=== PATIENT | female | born 1930 | race Caucasian/White ===

== ENCOUNTER → 2017-05-29 | Outpatient (CLI) | payer MEDICARE, OTHER ==
[~2017-05-29] MED LIST: ASPIRIN81 M2 PO; B COMPLEX1 EACH PO; B12INJ; BACTRIM DS TAB1 EACH PO; BUDESONIDE EC3 MG PO; CARVEDILOL12.5 MG PO; CELEBREX 200 M200 M1 PO; CELEBREX 200 M200 MG PO; CELEBREX50 MG PO; CENTRUM SILVER1 EAC4 PO; CHLORTHALIDONE25 MG PO; CHOLESTYRAMINE P4 GM PO; CIPRO500 MG PO; CIPROFLOXACIN500 M1 PO; COLESTID1 GM PO; COZAAR 50 MG TA50 M1 PO; COZAAR 50 MG TA50 M2 PO; DIFLUCAN150 MG PO; FISHOIL; FOLIC ACID PO; FOLIC ACID1 MG PO; FOSAMAX 70 MG T70 MG PO; FUROSEMIDE 20 M20 M1 PO; HYDRALAZINE 2525 MG PO; HYDROCODON-ACE1 EAC7 PO; HYZAAR 100-251 EACH PO; HYZAAR 50-12.51 EACH PO; LASIX 20 MG TAB20 MG PO; LIDOPATCH1 EACH TOP; LOPERAMIDE 2 MG2 M1 PO; LOSARTAN-HCTZ1 EAC1 PO; MOBIC15 MG PO; NAPROSYN500 MG PO; NEXIUM40 MG PO; NORCO 5-325 TA1 EACH PO; NORVASC10 MG PO; NYSTATIN15 GM TP; OXYBUTYNIN 5 MG5 M1 PO; OXYBUTYNIN 5 MG5 M2 PO; PAXIL10 MG PO; PERCOCET PO; POTASSIUM99 M1; PREDNISONE 20 M20 MG PO; PRILOSEC 20 MG20 MG PO; PRILOSEC10 MG PO; PROBIOTIC1 EAC1 PO; PROBIOTIC1 EAC2 PO; SPIRONOLACTONE25 MG PO; TRAMADOL 50 MG50 MG PO; TUMS PO; TYLENOL EXTRA500 MG PO; VITAMIN D1000 UNI1 PO; ZYRTEC10 M5 PO; ZYRTEC10 MG PO
== END ==
LOC: M.RAD 11:59
DX: M47.896 Other spondylosis, lumbar region (principal); M41.86 Other forms of scoliosis, lumbar region; I16.0 Hypertensive urgency; W19.XXXA Unspecified fall, initial encounter

== ENCOUNTER 2017-06-01 11:12 | Inpatient (IN) | payer MEDICARE, OTHER ==
[~2017-06-01] VITALS: Ht 162.6 cm; Wt 66.7 kg
[~2017-06-01 11:12] MED LIST changes: -BUDESONIDE EC3 MG PO; -CARVEDILOL12.5 MG PO; -CELEBREX50 MG PO; -CENTRUM SILVER1 EAC4 PO; -CHLORTHALIDONE25 MG PO; -COLESTID1 GM PO; -COZAAR 50 MG TA50 M1 PO; -COZAAR 50 MG TA50 M2 PO; -FUROSEMIDE 20 M20 M1 PO; -HYDRALAZINE 2525 MG PO; -LASIX 20 MG TAB20 MG PO; -LIDOPATCH1 EACH TOP; -LOPERAMIDE 2 MG2 M1 PO; -NORVASC10 MG PO; -OXYBUTYNIN 5 MG5 M2 PO; -PAXIL10 MG PO; -PREDNISONE 20 M20 MG PO; -PRILOSEC 20 MG20 MG PO; -PRILOSEC10 MG PO; -PROBIOTIC1 EAC1 PO; -PROBIOTIC1 EAC2 PO; -SPIRONOLACTONE25 MG PO; -TRAMADOL 50 MG50 MG PO; -TUMS PO; -TYLENOL EXTRA500 MG PO
[2017-06-01 11:25] VITALS: BP 231/102
[2017-06-01 11:49] LABS: ABSOLUTE BASOPHILS 0.1 thou/uL (0.0-0.2); ABSOLUTE EOSINOPHILS 0.3 thou/uL (0.0-0.7); ABSOLUTE LYMPHOCYTES 2.2 thou/uL (0.8-5.3); ABSOLUTE MONOCYTES 1.1 thou/uL (0.0-1.2); ABSOLUTE NEUTROPHILS 6.6 thou/uL (1.6-8.1); BASOPHILS 1.3 %; EOSINOPHILS 2.4 %; HEMATOCRIT 34.1 % (37.0-47.0); HEMOGLOBIN 11.7 gm/dL (12.0-15.0); LYMPHOCYTES 21.6 %; MCH 30.9 pg (26.0-34.0); MCHC 34.1 g/dL (28.0-37.0); MCV 90.4 fL (80.0-100.0); MONOCYTES 10.6 %; MPV 7.1 fl. (7.2-11.1); NUCLEATED RBCS 0 /100WBC; PLATELET COUNT* 294 thou/uL (150-400); POLYS 64.1 %; RBC 3.78 mil/uL (4.20-5.00); RDW-CV 13.7 % (10.5-14.5); WBC 10.3 thou/uL (4.0-11.0)
[2017-06-01 11:53] LABS: URINE BILIRUBIN NEGATIVE (Negative); URINE BLOOD 1+ (Negative); URINE CLARITY CLEAR; URINE COLOR YELLOW; URINE GLUCOSE-RANDOM NEGATIVE (Negative); URINE KETONES TRACE (Negative); URINE LEUKOCYTES-REFLEX TRACE (Negative); URINE NITRITE-REFLEX NEGATIVE (Negative); URINE PROTEIN 3+ (Negative); URINE UROBILINOGEN 0.2 E.U./dl (0.2-1.0)
[2017-06-01 11:58] LABS: CALCIUM 8.8 mg/dL (8.5-10.1); CREATININE 1.1 mg/dL (0.6-1.3); POTASSIUM 3.7 mmol/L (3.5-5.1)
[2017-06-01 12:02] LABS: BACTERIA-REFLEX >30 Many /HPF (None Seen); CASTS None Seen /LPF (None Seen); CRYSTALS None Seen /LPF (None Seen); SQUAMOUS 4-10 Moderate /LPF (0-3); URINE RBC 0-2 Rare /HPF (0-2); URINE WBC-REFLEX 6-15 Few /HPF (0-5)
[2017-06-01 12:02] LABS: ALBUMIN 3.6 g/dL (3.4-5.0); TOTAL BILIRUBIN 0.7 mg/dL (<0.1-1.0); TOTAL PROTEIN 6.8 g/dL (6.4-8.2)
[2017-06-01] MEDS ORDERED: HYDRALAZINE 2525 MG PO (12:24)
[2017-06-01] MEDS ORDERED: PRILOSEC 20 MG20 MG PO (12:26)
[2017-06-01] MEDS ORDERED: FOLIC ACID1 MG PO (12:27)
[2017-06-01] MEDS ORDERED: FUROSEMIDE 20 M20 M1 PO (12:31)
[2017-06-01] MEDS ORDERED: PAXIL10 MG PO (12:31)
--- NOTE | 2017-06-01 16:01 | EKG ---
[place] [address] ELECTROCARDIOGRAM REPORT Name: ANGI PALMER Room: [place] [address] ADM IN [facility].#: [id number] Admission: 06/01/17 Attend Phys: Emmett Head MD Discharge: Date of : [birth year] Report #: [id number] THIS REPORT FOR: //name// [facility] ED Test Date: 2017-06-01 Test Time: 11:47:21 Pat Name: ANGI PALMER Department: Room: [facility] Gender: F Clinical Appeals Specialist: RICA Booth : 1930 Requested By: Bessie Vallecillo Order Number: [id number] MD: Andrew Sandy Measurements Intervals [place] Rate: 66 P: 142 AR: 186 QRS: -14 QRSD: 106 T: 69 QT: 472 QTc: 495 Interpretive Statements Sinus rhythm Atrial premature complex Probable left atrial enlargement LVH with secondary repolarization abnormality Inferior infarct, old Anterior infarct, old Compared to ECG 12/29/2015 11:54:16 Atrial premature complex(es) now present Left ventricular hypertrophy now present Early repolarization now present Myocardial infarct finding now present Electronically Signed On 06-01-2017 16:01:13 [employer] by Andrew Sandy [email or web address] <ELECTRONICALLY SIGNED> By: Andrew Sandy MD, [facility] 06/01/17 1601 1147 1147 Andrew Sandy MD, [facility] /EPI
[2017-06-01 18:40] VITALS: BP 166/62
[2017-06-01 20:30] VITALS: BP 163/68
[2017-06-01] MEDS ORDERED: PROBIOTIC1 EAC2 PO (21:08)
[2017-06-01 23:58] VITALS: BP 188/66
[2017-06-02 04:00] VITALS: BP 196/65
[2017-06-02 05:25] LABS: ABSOLUTE BASOPHILS 0.1 thou/uL (0.0-0.2); ABSOLUTE EOSINOPHILS 0.2 thou/uL (0.0-0.7); ABSOLUTE LYMPHOCYTES 1.3 thou/uL (0.8-5.3); ABSOLUTE NEUTROPHILS 4.8 thou/uL (1.6-8.1); BASOPHILS 1.8 %; EOSINOPHILS 3.2 %; HEMATOCRIT 26.6 % (37.0-47.0); LYMPHOCYTES 17.7 %; MCHC 34.2 g/dL (28.0-37.0); MCV 90.5 fL (80.0-100.0); MONOCYTES 12.9 %; MPV 7.1 fl. (7.2-11.1); NUCLEATED RBCS 0 /100WBC; PLATELET COUNT* 222 thou/uL (150-400); POLYS 64.4 %; RBC 2.94 mil/uL (4.20-5.00); RDW-CV 13.7 % (10.5-14.5); WBC 7.5 thou/uL (4.0-11.0)
[2017-06-02 05:40] LABS: CALCIUM 8.1 mg/dL (8.5-10.1); CREATININE 1.1 mg/dL (0.6-1.3); POTASSIUM 3.9 mmol/L (3.5-5.1)
[2017-06-02 05:43] LABS: HEMOGLOBIN 9.1 gm/dL (12.0-15.0)
[2017-06-02 08:00] VITALS: BP 193/77
[2017-06-02 12:00] VITALS: BP 126/60
[2017-06-02 20:00] VITALS: BP 167/66
[2017-06-03 06:35] VITALS: BP 181/60
[2017-06-03 15:40] VITALS: BP 191/63
[2017-06-03 20:00] VITALS: BP 203/69
[2017-06-03 21:40] VITALS: BP 223/78
[2017-06-03 22:00] VITALS: BP 205/64
[2017-06-04 00:46] VITALS: BP 193/64
[2017-06-04 04:07] VITALS: BP 126/66
[2017-06-04 08:00] VITALS: BP 150/56
[2017-06-04 12:01] LABS: HEMATOCRIT 27.7 % (37.0-47.0); HEMOGLOBIN 9.3 gm/dL (12.0-15.0); MCH 30.8 pg (26.0-34.0); MCHC 33.6 g/dL (28.0-37.0); MCV 91.7 fL (80.0-100.0); MPV 7.4 fl. (7.2-11.1); RBC 3.02 mil/uL (4.20-5.00); RDW-CV 13.9 % (10.5-14.5); WBC 6.7 thou/uL (4.0-11.0)
[2017-06-04 12:08] LABS: CALCIUM 8.3 mg/dL (8.5-10.1); CREATININE 1.2 mg/dL (0.6-1.3); POTASSIUM 4.3 mmol/L (3.5-5.1)
--- NOTE | 2017-06-04 12:26 | EKG ---
[place] [address] ELECTROCARDIOGRAM REPORT Name: ANGI PALMER Room: [address] ADM IN [facility].#: [id number] Admission: 06/01/17 Attend Phys: Emmett Head MD Discharge: Date of : [birth year] Report #: [id number] THIS REPORT FOR: //name// [facility] Test Date: 2017-06-03 Test Time: 21:55:49 Pat Name: ANGI PALMER Department: Room: [address] Gender: F Major Sales Associate: ANGEL : 1930 Requested By: Emmett Head Order Number: [id number] Reading MD: Andrew Sandy Measurements Intervals [place] Rate: 69 P: 46 AR: 193 QRS: 28 QRSD: 104 T: 52 QT: 396 QTc: 425 Interpretive Statements Sinus rhythm Low voltage, extremity leads Anteroseptal infarct, old Compared to ECG 06/01/2017 11:47:21 Low QRS voltage now present Atrial premature complex(es) no longer present Left ventricular hypertrophy no longer present Early repolarization no longer present Myocardial infarct finding still present Electronically Signed On 06-04-2017 12:26:04 [employer] by Andrew Sandy [email or web address] <ELECTRONICALLY SIGNED> By: Andrew Sandy MD, FACC 06/04/17 1226 2155 [id number] Andrew Sandy MD, FAC /EPI
[2017-06-04 15:40] VITALS: BP 200/64
[2017-06-04 21:00] VITALS: BP 191/68
[2017-06-05] VITALS: BP 186/72
[2017-06-05 04:43] VITALS: BP 150/72
[2017-06-05 04:43] LABS: HEMOGLOBIN 8.6 gm/dL (12.0-15.0); MCH 31.1 pg (26.0-34.0); MCHC 34.5 g/dL (28.0-37.0); MCV 90.1 fL (80.0-100.0); MPV 7.9 fl. (7.2-11.1); RBC 2.78 mil/uL (4.20-5.00); RDW-CV 13.7 % (10.5-14.5)
[2017-06-05 04:56] LABS: CALCIUM 8.2 mg/dL (8.5-10.1); POTASSIUM 4.3 mmol/L (3.5-5.1)
[2017-06-05 07:30] VITALS: BP 188/70
[2017-06-05 16:37] VITALS: BP 140/51
[2017-06-05 20:45] VITALS: BP 152/62
[2017-06-06 00:16] VITALS: BP 111/50; BP 180/66
[2017-06-06 03:50] VITALS: BP 167/65
[2017-06-06 04:23] LABS: ALBUMIN 2.9 g/dL (3.4-5.0); CALCIUM 8.3 mg/dL (8.5-10.1); CREATININE 1.1 mg/dL (0.6-1.3); MAGNESIUM 1.6 mg/dL (1.8-2.4); POTASSIUM 4.6 mmol/L (3.5-5.1); TOTAL BILIRUBIN 0.3 mg/dL (<0.1-1.0); TOTAL PROTEIN 5.3 g/dL (6.4-8.2)
[2017-06-06 04:38] LABS: HEMOGLOBIN 9.3 gm/dL (12.0-15.0); MCH 32.1 pg (26.0-34.0); MCHC 35.6 g/dL (28.0-37.0); MCV 90.2 fL (80.0-100.0); MPV 7.8 fl. (7.2-11.1); RBC 2.89 mil/uL (4.20-5.00); RDW-CV 13.6 % (10.5-14.5); WBC 8.2 thou/uL (4.0-11.0)
[2017-06-06 08:15] VITALS: BP 172/68
[2017-06-06 16:00] VITALS: BP 165/59
[2017-06-06 20:01] LABS: URINE BILIRUBIN NEGATIVE (Negative); URINE BLOOD NEGATIVE (Negative); URINE CLARITY CLEAR; URINE COLOR YELLOW; URINE GLUCOSE-RANDOM NEGATIVE (Negative); URINE KETONES NEGATIVE (Negative); URINE LEUKOCYTES-REFLEX NEGATIVE (Negative); URINE NITRITE-REFLEX NEGATIVE (Negative); URINE PROTEIN 3+ (Negative); URINE SPECIFIC GRAVITY 1.025 (1.005-1.030); URINE UROBILINOGEN 0.2 E.U./dl (0.2-1.0)
[2017-06-06 20:12] LABS: HYALINE CASTS 0-3 Few /LPF (None Seen); MUCUS None Seen strn/LPF (None Seen); SQUAMOUS >10 Many /LPF (0-3); URINE RBC 0-2 Rare /HPF (0-2); URINE WBC-REFLEX 0-5 Rare /HPF (0-5)
[2017-06-06 20:13] LABS: BACTERIA-REFLEX 1-9 Few /HPF (None Seen); CRYSTALS None Seen /LPF (None Seen)
[2017-06-06 23:53] VITALS: BP 163/60
[2017-06-07 03:38] LABS: HEMATOCRIT 25.3 % (37.0-47.0); HEMOGLOBIN 8.7 gm/dL (12.0-15.0); MCH 30.9 pg (26.0-34.0); MCHC 34.2 g/dL (28.0-37.0); MCV 90.5 fL (80.0-100.0); MPV 7.7 fl. (7.2-11.1); RBC 2.8 mil/uL (4.20-5.00); RDW-CV 14.1 % (10.5-14.5); WBC 6.4 thou/uL (4.0-11.0)
[2017-06-07 03:41] LABS: CALCIUM 8.2 mg/dL (8.5-10.1); POTASSIUM 4.5 mmol/L (3.5-5.1)
[2017-06-07 04:27] VITALS: BP 167/63
[2017-06-07 07:22] VITALS: BP 130/67
[2017-06-07] MEDS ORDERED: HYDRALAZINE 2525 MG PO (09:44)
[2017-06-07] MEDS ORDERED: CARVEDILOL12.5 MG PO (09:44)
[2017-06-07] MEDS ORDERED: CIPRO500 MG PO (09:44)
[2017-06-07] MEDS ORDERED: LIDOPATCH1 EACH TOP (09:46)
[2017-06-07] MEDS ORDERED: COZAAR 50 MG TA50 M1 PO (09:46)
[2017-06-07 11:21] VITALS: BP 130/67
[2017-06-07 11:57] VITALS: BP 130/67
[2017-06-07 12:15] VITALS: BP 121/51
--- NOTE | 2017-06-10 15:56 | CON ---
[address] [address] CONSULTATION Name: ANGI PALMER Room: [address] IN .R.#: [id number] Admission: 06/01/17 Attend Phys: Emmett Head MD Discharge: 06/07/17 Date of : [birth year] Report #: [id number] THIS REPORT FOR: //name// CC: Emmett Beyer DATE OF SERVICE: 06/05/2017 HISTORY OF PRESENT ILLNESS: This is an 86-year-old female patient who indicated that she fell down about 2 weeks ago and since then she is having pain, which has been refractory to treatment and no cause has been found. The pain is in the lower back, it radiates down to the left hip, it came after a fall and she did not have any significant pain prior to that, it is a severe pain. She does not know any aggravating or relieving factor for this pain. REVIEW OF SYSTEMS: Indicate that she does not have any pain usually. She is not a chronic back pain patient. She also has some associated hypertension. She had multiple problems in the past and those problems include colitis and abdominal pain. She also had multiple musculoskeletal injuries. She also had urinary tract infections in the past. She had tubal ligations and hysterectomies long time ago. She also had some cataract surgery. Except for the severe back pain, she feels back to herself, although her blood pressure has been very high. She is not complaining of any new eye, ENT, cardiac, respiratory, GI, , constitutional, dermatological, hematological, psychiatric, throat, allergic, or endocrine symptom associated with present symptomatologies which are new. PAST MEDICAL HISTORY: Negative for chronic back pain according to the patient. FAMILY HISTORY: Negative for any collagen vascular disorder. SOCIAL HISTORY: She does not smoke or abuse alcohol. PHYSICAL EXAMINATION: The patient's examinations indicate she is alert, responsive, able to follow simple and complex command. Her speech, concentration, fund of knowledge and memory is at her baseline. Cranial nerve examination 2-12 is unremarkable. It looks like her strength and sensations are preserved, but I could not elicit her left very well. She does not relax, so it is difficult to tell. There is no carotid bruit. There is no meningeal sign and there is no cerebellar sign. She is a reasonably well-developed individual who does not have any dysmorphic features of eyes, ears and face. Her visions and hearing looks adequate. Her pulses are somewhat difficult to feel, but she has no edema, cyanosis or jaundice. Cardiac examination is unremarkable. No respiratory difficulty or rhonchi on either side. Her blood pressure is 188/70, respiration is 73, and temperature is 98.1. [place] [address] CONSULTATION Name: SPENCER,ANGI Rl Room: [address]#: [id number] Admission: 06/01/17 Attend Phys: Emmett Head MD Discharge: 06/07/17 Date of : [birth year] Report #: [id number] LABS: Indicate a normal white count, but she is anemic and looks like her hematocrit has dropped significantly since she was admitted. She is hyponatremic to some extent. Her sodium is only 131. She did have multiple radiological evaluations and that has been mostly unremarkable. On examination, her pain appeared to be mostly in the left sacroiliac joint. IMPRESSION: Significant pain after the fall. It appeared to be in sacroiliac joint. However, her reflexes in the left knee appeared to be diminished raising the possibility of L2-L3 radiculopathy. She is scheduled for an MRI of the lumbar spine and we will see what it shows. She is also anemic and her hemoglobin is dropping and she is becoming hyponatremic. I am not sure that has anything relation to this, but that may have to be addressed and I will defer that evaluation and management to yourself. RECOMMENDATIONS: 1. Await MRI of the lumbar spine. 2. We do not have an EMG machine. 3. I will suggest doing some collagen vascular workup. 4. It appeared to be mostly orthopedic injuries and they are working on it and we will see what they say. 5. She is hypertensive and that need to be addressed, but again that will not explain her symptoms. She has multiple systemic problems like anemia, hyponatremia, hypertension that need to be addressed, but I am not sure that has any relationship to her back pain. I discussed all of it with the patient in great detail and I spent more than 50 minutes of time taking care of this patient and majority of that time was spent counseling this patient as well as coordinating her care. <ELECTRONICALLY SIGNED> By: Bebeto Mary MD 06/10/17 1556 1019 [id number] Mary MD /nt
== END 2017-06-07 12:50 | disposition home health service (06) | DRG 690 ==
LOC: M.ERS 11:12 → M.2W 15:29 → M.TBA-ER 15:29 → M.2W 18:44 → M.ORTHSURG 06-02 18:22
PROVIDERS: Family Medicine; Internal Medicine; Physician Assistant; ADMIT Internal Medicine
DX: N39.0 Urinary tract infection, site not specified (principal); I16.1 Hypertensive emergency; I12.9 Hypertensive chronic kidney disease with stage 1 through stage 4 chronic kidney disease, or unspecified chronic kidney disease; S70.02XA Contusion of left hip, initial encounter; N18.3 Chronic kidney disease, stage 3 (moderate); W01.0XXA Fall on same level from slipping, tripping and stumbling without subsequent striking against object, initial encounter; M51.36 Other intervertebral disc degeneration, lumbar region; M41.9 Scoliosis, unspecified; Z90.49 Acquired absence of other specified parts of digestive tract; Z90.710 Acquired absence of both cervix and uterus; Z98.49 Cataract extraction status, unspecified eye; Z79.899 Other long term (current) drug therapy; Z88.8 Allergy status to other drugs, medicaments and biological substances; Z88.6 Allergy status to analgesic agent; Y93.89 Activity, other specified; Y92.89 Other specified places as the place of occurrence of the external cause; Y99.8 Other external cause status

== ENCOUNTER 2017-09-28 11:04 | Emergency (ER) | payer MEDICARE, OTHER ==
[~2017-09-28] VITALS: Ht 167.6 cm; Wt 56.7 kg
[~2017-09-28 11:04] MED LIST changes: +CARVEDILOL12.5 MG PO; +COZAAR 50 MG TA50 M1 PO; +FUROSEMIDE 20 M20 M1 PO; +HYDRALAZINE 2525 MG PO; +LIDOPATCH1 EACH TOP; +PAXIL10 MG PO; +PRILOSEC 20 MG20 MG PO; +PROBIOTIC1 EAC2 PO
[2017-09-28] MEDS ORDERED: PREDNISONE 20 M20 MG PO (11:49)
[2017-09-28 11:56] VITALS: BP 182/55
== END 2017-09-28 11:57 | disposition home or self-care (01) ==
LOC: M.ERS 11:04
DX: R21 Rash and other nonspecific skin eruption (principal); I10 Essential (primary) hypertension; Z88.6 Allergy status to analgesic agent; Z88.8 Allergy status to other drugs, medicaments and biological substances; Z90.49 Acquired absence of other specified parts of digestive tract; Z90.710 Acquired absence of both cervix and uterus

== ENCOUNTER 2017-11-20 09:40 | Inpatient (IN) | payer MEDICARE, OTHER ==
[~2017-11-20] VITALS: Ht 167.6 cm; Wt 57.6 kg
--- NOTE | ~2017-11-20 | PROC ---
[address] [address] PROCEDURE REPORT Name: ANGI PALMER Room: [address] IN ..#: [id number] Admission: 11/20/17 Attend Phys: Ronnie Claudio Discharge: 11/23/17 Date of : [birth year] Report #: [id number] THIS REPORT FOR: //name// For GI report, please see the Provation report in Perceptive 7 content. By: [id number] Records Staff KAYLYNN /NICOL
[~2017-11-20 09:40] MED LIST changes: +PREDNISONE 20 M20 MG PO
[2017-11-20 09:47] VITALS: BP 120/35
[2017-11-20] MEDS ORDERED: CARVEDILOL12.5 MG PO (10:17)
[2017-11-20] MEDS ORDERED: TRAMADOL 50 MG50 MG PO (10:18)
[2017-11-20] MEDS ORDERED: COZAAR 50 MG TA50 M2 PO (10:18)
[2017-11-20] MEDS ORDERED: PROBIOTIC1 EAC1 PO (10:19)
[2017-11-20 10:33] LABS: ABSOLUTE EOSINOPHILS 0.1 thou/uL (0.0-0.7); ABSOLUTE LYMPHOCYTES 1.2 thou/uL (0.8-5.3); ABSOLUTE NEUTROPHILS 4.2 thou/uL (1.6-8.1); BASOPHILS 0.6 %; EOSINOPHILS 0.9 %; HEMOGLOBIN 8.5 gm/dL (12.0-15.0); LYMPHOCYTES 18.3 %; MCH 31.3 pg (26.0-34.0); MCHC 33.8 g/dL (28.0-37.0); MCV 92.7 fL (80.0-100.0); MPV 6.9 fl. (7.2-11.1); NUCLEATED RBCS 0 /100WBC; PLATELET COUNT* 254 thou/uL (150-400); POLYS 65.2 %; WBC 6.4 thou/uL (4.0-11.0)
[2017-11-20 10:41] LABS: CREATININE 1.8 mg/dL (0.6-1.3); POTASSIUM 3.6 mmol/L (3.5-5.1)
[2017-11-20 10:45] LABS: ALBUMIN 2.6 g/dL (3.4-5.0); TOTAL BILIRUBIN 0.3 mg/dL (<0.1-1.0); TOTAL PROTEIN 5.9 g/dL (6.4-8.2)
[2017-11-20 11:50] VITALS: BP 120/42
[2017-11-20 12:10] VITALS: BP 126/40
[2017-11-20 15:44] VITALS: BP 128/35
--- NOTE | 2017-11-20 18:28 | NUR ---
PATIENT RESTINGIN BED. UP AD LAURA IN ROOM. IV FLUIDS INFUSING THROUGH R AC. PATIET DENIES PAIN. JOSHTNET HAS NOT EXPERIENCED ANY BOWEL MOVEMENT SINCE ADMISSION. ISOLATION CART FOR POSSIBLE C DIFF INFECTION AND AWAITING STOOL SAMPLE. VITAL SIGNS STABLE AND PATIENT IN NOAPPARENT SIGNS OF DISTRESS AT THIS TUIME. HOURLY ROUNDING COMPLETD FOR PATIENT SAFETY AND PATINET IS PROGRESSING TOWARDS GOALS.
[2017-11-20 20:00] VITALS: BP 146/39
[2017-11-21] VITALS: BP 143/45
[2017-11-21 04:00] VITALS: BP 156/47
[2017-11-21 05:57] LABS: ALBUMIN 2.1 g/dL (3.4-5.0); CALCIUM 7.4 mg/dL (8.5-10.1); CREATININE 1.4 mg/dL (0.6-1.3); POTASSIUM 3.4 mmol/L (3.5-5.1); TOTAL BILIRUBIN 0.2 mg/dL (<0.1-1.0); TOTAL PROTEIN 4.7 g/dL (6.4-8.2)
--- NOTE | 2017-11-21 06:28 | NUR ---
ASSUMED PT CARE REPORT RECEIVED FROM NURSE. PT IS ALERT AWAKE ORIENTED X 4. SINUS JASON ON THE MONITOR. PT SLEPT DURING THE WHOLE NIGHT/ NORMAL SALINE INFUSING 100CC PER HOUR. SHE IS ON RA AND SATURATION REMIANS ABOVE 95% RA. USES THE BEDSIDE COMMODE AND HAD A BOWEL MOVEMENT. SMALL DIARRHEA OF LIGHT BROWN COLOR . SAFETY MAINTAINED.
[2017-11-21 08:00] VITALS: BP 151/52
--- NOTE | 2017-11-21 10:16 | NUR ---
Pt is A&O. Dtr at bedside. Pt resides at home with her . 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 No DME. Hx of [facility]. No hx of SNF. Pt states that her home is handicapped assessible for her . is currently on palliative care. Pt's goal is to [place] at [place]. No needs anticipated. Following.
--- NOTE | 2017-11-21 11:05 | CON ---
[facility] [address] [place] [address] CONSULTATION Name: ANGI PALMER Room: [address] IN [facility]#: [id number] Admission: 11/20/17 Attend Phys: Ronnie Claudio Discharge: Date of : [birth year] Report #: [id number] THIS REPORT FOR: //name// CC: Teto Blair DATE OF SERVICE: 11/20/2017 REQUESTING PHYSICIAN: Jay Blair DO. REASON FOR CONSULTATION: Acute kidney injury. HISTORY OF PRESENT ILLNESS: The patient is a very pleasant 87-year-old female who was admitted for abnormal BUN and creatinine levels. The patient has been having diarrhea for the last several weeks. Reports feeling dehydrated. She was also taking losartan, Celebrex and furosemide at home for her hypertension and degenerative joint disease. When she was admitted, her creatinine was 1.8. Her creatinine on 06/07/2017 was 1.0. PAST MEDICAL HISTORY: Significant for: 1. Hypertension. 2. History of acute kidney injury in the past. I actually did see the patient in 2014. 3. 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 FAMILY HISTORY: Noncontributory. SOCIAL HISTORY: Denies tobacco or alcohol abuse. MEDICATIONS: Prior to admission reviewed. From my standpoint, she was on losartan, Celebrex and furosemide. REVIEW OF SYSTEMS: Positive for having diarrhea, feeling weak and dehydrated. She denies shortness of breath or chest pain, No fever, no chills. No changes in visual or hearing acuity. No blood in stool or urine. She is not depressed. PHYSICAL EXAMINATION: GENERAL: Awake, alert, oriented. VITAL SIGNS: Blood pressure is 120/42, heart rate 58, afebrile. HEENT: Pupils round. Oral mucosa is dry. NECK: Supple. LUNGS: Clear. CARDIOVASCULAR: [place] [address] CONSULTATION Name: ANGI PALMER Rl Room: [address]#: [id number] Admission: 11/20/17 Attend Phys: Ronnie Claudio Discharge: Date of : [birth year] Report #: [id number] ABDOMEN: Soft. LOWER EXTREMITIES: No edema. LABORATORY DATA: Serum sodium 137, potassium 3.6, chloride 106, carbon dioxide 20, BUN 43, creatinine 1.8, hemoglobin is 8.5. ASSESSMENT: An 87-year-old female admitted with acute kidney injury, probably combination of volume depletion in the setting of losartan, Celebrex and furosemide use. His medications were stopped now. Her blood pressure will be monitored carefully and she is getting normal saline. Hopefully, her renal function will improve fairly soon. We will need to have a GI doctor involved to assess her chronic diarrhea. Stool for C. diff was sent out. Thank you very much for asking my opinion on acute kidney injury on the patient. <ELECTRONICALLY SIGNED> By: Albert Lemons MD 11/21/17 1105 1239 [id number] Lemons MD /[facility]
[2017-11-21 11:57] VITALS: BP 118/45
[2017-11-21 15:24] VITALS: BP 158/38
[2017-11-21 20:05] VITALS: BP 165/56
[2017-11-22] VITALS: BP 129/47
[2017-11-22 04:00] VITALS: BP 135/48
[2017-11-22 04:15] LABS: ABSOLUTE EOSINOPHILS 0.1 thou/uL (0.0-0.7); ABSOLUTE LYMPHOCYTES 1.3 thou/uL (0.8-5.3); ABSOLUTE MONOCYTES 1.3 thou/uL (0.0-1.2); ABSOLUTE NEUTROPHILS 5.1 thou/uL (1.6-8.1); BASOPHILS 0.6 %; EOSINOPHILS 0.6 %; HEMATOCRIT 25.5 % (37.0-47.0); HEMOGLOBIN 8.5 gm/dL (12.0-15.0); LYMPHOCYTES 16.5 %; MCH 31.2 pg (26.0-34.0); MCHC 33.4 g/dL (28.0-37.0); MCV 93.3 fL (80.0-100.0); MONOCYTES 16.2 %; MPV 7.2 fl. (7.2-11.1); NUCLEATED RBCS 0 /100WBC; PLATELET COUNT* 251 thou/uL (150-400); POLYS 66.1 %; RBC 2.74 mil/uL (4.20-5.00); RDW-CV 13.9 % (10.5-14.5); WBC 7.8 thou/uL (4.0-11.0)
[2017-11-22 04:37] LABS: PREALBUMIN 11.7 mg/dL (18.0-35.7)
[2017-11-22 04:50] LABS: ALBUMIN 2.2 g/dL (3.4-5.0); CALCIUM 7.4 mg/dL (8.5-10.1); CREATININE 1.1 mg/dL (0.6-1.3); TOTAL BILIRUBIN 0.3 mg/dL (<0.1-1.0); TOTAL PROTEIN 5.1 g/dL (6.4-8.2)
[2017-11-22 06:12] LABS: ESR (SEDRATE) 50 mm/hr (0-30)
--- NOTE | 2017-11-22 07:20 | NUR ---
CHANGE OF SHIFT BEDSIDE REPORT GIVEN PATIENT SEEN AT BEDSIDE IN BED ASLEEP ASUMED PATIENT CARE
--- NOTE | 2017-11-22 07:47 | NUR ---
Pt reports no complaints. Had BM early this am, and undigested food noted in stool. Unable to send stool specimen as pt voided with BM. VSS. NPO for EGD/Flex Sig this am. Will continue to monitor.
[2017-11-22 08:00] VITALS: BP 171/67
[2017-11-22 10:49] VITALS: BP 168/70
[2017-11-22 16:25] VITALS: BP 126/35
--- NOTE | 2017-11-22 17:44 | NUR ---
PATIENT LAYING IN BED AND WATCHING TV REMAINS A AND O X 4 SR/1ST DEGREE RA O2 SAT MID 90S APPETTIE FAIR LAST BM TODAY UO ADEQUATE, ALITTLE CONCENTRATED, UNMEASURED AMT UP WITH 1 ASSIST IV R FA 20 GA IVF NS AT 60CC/HR DENIES PAIN CALL LIGHT IN REACH AND INSTRUCTION GIVEN AND FOLLOWED EGD AND FLEX SIG COMPLETED TODAY
[2017-11-22 20:25] VITALS: BP 135/44
[2017-11-23] VITALS: BP 118/45
[2017-11-23 04:00] VITALS: BP 103/51
[2017-11-23 05:37] LABS: ABSOLUTE EOSINOPHILS 0.1 thou/uL (0.0-0.7); ABSOLUTE LYMPHOCYTES 1.7 thou/uL (0.8-5.3); ABSOLUTE MONOCYTES 1.1 thou/uL (0.0-1.2); ABSOLUTE NEUTROPHILS 3.1 thou/uL (1.6-8.1); BASOPHILS 0.7 %; EOSINOPHILS 1.1 %; HEMATOCRIT 23.7 % (37.0-47.0); MCH 31.3 pg (26.0-34.0); MCHC 33.6 g/dL (28.0-37.0); MCV 93.1 fL (80.0-100.0); MONOCYTES 17.7 %; NUCLEATED RBCS 0 /100WBC; PLATELET COUNT* 264 thou/uL (150-400); POLYS 51.5 %; RBC 2.54 mil/uL (4.20-5.00)
[2017-11-23 06:00] LABS: PREALBUMIN 10.9 mg/dL (18.0-35.7)
[2017-11-23 06:06] LABS: CALCIUM 7.8 mg/dL (8.5-10.1); CREATININE 1.2 mg/dL (0.6-1.3); POTASSIUM 4.6 mmol/L (3.5-5.1); TOTAL BILIRUBIN 0.2 mg/dL (<0.1-1.0); TOTAL PROTEIN 4.4 g/dL (6.4-8.2)
--- NOTE | 2017-11-23 06:35 | NUR ---
Pt rested well overnight. VSS. No complaints. States she is hopeful of being discharged today. Will continue to monitor.
--- NOTE | 2017-11-23 07:15 | NUR ---
ASSUMED CARE OF PT ASESSED AND DOCUMENTED. PT ON CARDIAC MONITER TRACING SR HR 61. PT IS A&O WITH NO C/O PAIN. PT REMAINS ON ISO PENDING CULTURE RESULTS. SHE IS ON ROOM AIR WITH CLEAR LUNGS. BED IS IN LOW POSITION CALL LIGHT IS IN REACH. WM.
[2017-11-23 08:00] VITALS: BP 131/46
--- NOTE | 2017-11-23 10:12 | NUR ---
CALLED DR WILKERSON [facility].
[2017-11-23] MEDS ORDERED: LOPERAMIDE 2 MG2 M1 PO (10:21)
--- NOTE | 2017-11-23 10:45 | NUR ---
DR LEMOS CALL OK TO D/C PT.
[2017-11-23 10:54] VITALS: BP 131/46
[2017-11-23 12:44] VITALS: BP 177/52
--- NOTE | 2017-11-23 13:50 | NUR ---
PT D/C'D TO HOME. ALL CONSULTS OK WITH D/C. EDUCATION GIVEN RE FOLLOW-UPS, MEDICATIONS, AND DRS ORDERS. SCRIPT GIVEN. D/C'D IV AND CARDIAC MONITER. ALL BELONGINGS PACKED UP AND LEFT WITH PT ACCOMAPANIED BY DAUGHTER AND STAFF.
--- NOTE | 2017-11-29 16:08 | PATH ---
[address] [address] PATHOLOGY RPT PROCEDURE Name: KRISTIN LEDEZMA Room: [address] IN ..#: [id number] Admission: 11/20/17 Date of : [birth year] Discharge: 11/23/17 Report #: [id number] Path Case #: [id number] [facility] Accession Number: [id number] . 01 Material submitted: . PART A: SMALL BOWEL BIOPSIES PART B: RANDOM COLON BIOPSIES . 01 Clinical history: . None provided . 02 Diagnosis: A. Small bowel biopsies: - Normal small intestinal mucosa. . B. Random colon biopsies: - Characteristic of collagenous colitis (see comment). [facility]/11/25/2017 . 02 Comment: The random colon biopsies (B) all show benign colonic mucosa with thickening of the subluminal collagen plate ranging from approximately 20 microns to at least 40 microns in association with a moderate lymphoplasmacytic infiltrate in the lamina propria, intraepithelial lymphocytosis, scattered neutrophils and scattered stripping away of the superficial epithelium. (MARU:pit 11/25/2017) . 02 Electronically signed: . Bob Thompson MD, Pathologist NPI- [id number] . 01 Gross description: . A. The specimen is received in formalin, labeled "Kristin Ledezma, small bowel biopsies for chronic diarrhea". Received are four segments of pale de la torre soft tissue ranging in size from 0.2 to 0.5 cm in maximum dimensions. The specimen is submitted entirely in cassette A1. . B. The specimen is received in formalin, labeled "Kristin Ledezma, random colon biopsies". Received are nine segments of pale de la torre soft tissue ranging in size from 0.3 to 0.6 cm in maximum dimensions. The specimen is submitted entirely in cassette B1. (CAA; 11/23/2017) QAC/QAC . 02 Pathologist provided ICD-10: K52.9 . [address] [place] [address] PATHOLOGY RPT PROCEDURE Name: KRISTIN LEDEZMA Room: [address] IN [facility]#: [id number] Admission: 11/20/17 Date of : [birth year] Discharge: 11/23/17 Report #: [id number] Path Case #: [id number] [facility] . [id number], [id number] Performed at: 01 [facility] Sharron Elizondo [address], [place], [place] [id number] MD Alan Garcia MD Phone: [phone] Performed at: 02 [facility] [address], [place], [place] [id number] MD Bob Thompson MD Phone: [phone]
== END 2017-11-23 14:03 | disposition home or self-care (01) | DRG 683 ==
LOC: M.ERS 09:40 → M.TBA-ER 10:55 → M.2W 10:55
PROVIDERS: Emergency Medicine; Internal Medicine; Internal Medicine Gastroenterology; Internal Medicine Nephrology; ADMIT Internal Medicine
PROC: 0DB88ZX Excision of Small Intestine, Via Natural or Artificial Opening Endoscopic, Diagnostic (ICD-10-PCS; principal; 2017-11-22)
PROC: 0DBE8ZX Excision of Large Intestine, Via Natural or Artificial Opening Endoscopic, Diagnostic (ICD-10-PCS; principal; 2017-11-22)
DX: N17.9 Acute kidney failure, unspecified (principal); E44.0 Moderate protein-calorie malnutrition; K58.9 Irritable bowel syndrome, unspecified; M19.90 Unspecified osteoarthritis, unspecified site; I10 Essential (primary) hypertension; K52.9 Noninfective gastroenteritis and colitis, unspecified; E86.0 Dehydration; K44.9 Diaphragmatic hernia without obstruction or gangrene; K64.9 Unspecified hemorrhoids; K57.30 Diverticulosis of large intestine without perforation or abscess without bleeding; D64.9 Anemia, unspecified; Z90.710 Acquired absence of both cervix and uterus; Z98.49 Cataract extraction status, unspecified eye; Z88.6 Allergy status to analgesic agent; Z88.8 Allergy status to other drugs, medicaments and biological substances; Z80.0 Family history of malignant neoplasm of digestive organs; Z79.899 Other long term (current) drug therapy; Z79.1 Long term (current) use of non-steroidal anti-inflammatories (NSAID)

== ENCOUNTER 2017-11-27 09:37 | Inpatient (IN) | payer MEDICARE, OTHER ==
[~2017-11-27] VITALS: Ht 167.6 cm; Wt 54.4 kg
[~2017-11-27 09:37] MED LIST changes: +COZAAR 50 MG TA50 M2 PO; +LOPERAMIDE 2 MG2 M1 PO; +PROBIOTIC1 EAC1 PO; +TRAMADOL 50 MG50 MG PO
[2017-11-27 09:39] VITALS: BP 119/30
[2017-11-27] MEDS ORDERED: FOLIC ACID1 MG PO (09:53)
[2017-11-27] MEDS ORDERED: TUMS PO (09:53)
[2017-11-27] MEDS ORDERED: OXYBUTYNIN 5 MG5 M2 PO (09:53)
[2017-11-27] MEDS ORDERED: CELEBREX50 MG PO (09:54)
[2017-11-27 10:10] LABS: HEMATOCRIT 23.7 % (37.0-47.0); HEMOGLOBIN 7.9 gm/dL (12.0-15.0); MCH 31.5 pg (26.0-34.0); MCHC 33.5 g/dL (28.0-37.0); MPV 7.2 fl. (7.2-11.1); NUCLEATED RBCS 0 /100WBC; PLATELET COUNT* 282 thou/uL (150-400); RBC 2.52 mil/uL (4.20-5.00); RDW-CV 13.9 % (10.5-14.5); WBC 4.8 thou/uL (4.0-11.0)
[2017-11-27 10:15] LABS: ANION GAP 8 mmol/L (7-16); BUN 28 mg/dL (7-18); CALCIUM 8.5 mg/dL (8.5-10.1); CHLORIDE 105 mmol/L (98-107); CO2 23 mmol/L (21-32); CREATININE 1.6 mg/dL (0.6-1.3); GLUCOSE 97 mg/dL (70-99); POTASSIUM 3.5 mmol/L (3.5-5.1); SODIUM 136 mmol/L (136-145)
[2017-11-27 10:17] LABS: INR 1.1; PROTIME 10.9 Seconds (9.20-11.50)
[2017-11-27 10:25] LABS: ALBUMIN 2.4 g/dL (3.4-5.0); ALKALINE PHOSPHATASE 36 U/L (46-116); LIPASE 105 U/L (73-393); NT-PRO BRAIN NAT PEPTIDE 2100 pg/mL (<300); SGOT 14 U/L (15-37); SGPT 12 U/L (30-65); TOTAL BILIRUBIN 0.3 mg/dL (<0.1-1.0); TOTAL PROTEIN 5.7 g/dL (6.4-8.2); TROPONIN-I LEVEL <0.06 ng/mL (<0.06)
[2017-11-27 11:08] LABS: ABSOLUTE LYMPHOCYTES 1.6 thou/uL (0.8-5.3); ABSOLUTE MONOCYTES 0.8 thou/uL (0.0-1.2); ABSOLUTE NEUTROPHILS 2.4 thou/uL (1.6-8.1)
[2017-11-27 11:09] LABS: PLATELET ESTIMATE ADEQUATE
[2017-11-27 11:56] LABS: URINE BILIRUBIN NEGATIVE (Negative); URINE BLOOD NEGATIVE (Negative); URINE CLARITY CLEAR; URINE COLOR YELLOW; URINE GLUCOSE-RANDOM NEGATIVE (Negative); URINE KETONES NEGATIVE (Negative); URINE LEUKOCYTES-REFLEX 1+ (Negative); URINE PROTEIN NEGATIVE (Negative); URINE SPECIFIC GRAVITY 1.015 (1.005-1.030); URINE UROBILINOGEN 0.2 E.U./dl (0.2-1.0)
[2017-11-27 11:57] LABS: URINE NITRITE-REFLEX POSITIVE (Negative)
[2017-11-27 12:05] LABS: BACTERIA-REFLEX >30 Many /HPF (None Seen); CASTS None Seen /LPF (None Seen); CRYSTALS None Seen /LPF (None Seen); SQUAMOUS NONE SEEN /LPF (0-3); URINE RBC None Seen /HPF (0-2); URINE WBC-REFLEX 0-5 Rare /HPF (0-5)
[2017-11-27 12:17] VITALS: BP 137/45
[2017-11-27 12:30] VITALS: BP 144/41
--- NOTE | 2017-11-27 15:00 | 2DMMODE ---
[place] [address] 2 D/M-MODE ECHOCARDIOGRAM Name: ANGI PALMER Room: [address] IN [facility]#: [id number] Admission: 11/27/17 Attend Phys: Dale Godinez, Discharge: Date of : [birth year] Date of Service: 11/27/17 1459 Report #: [id number] THIS REPORT FOR: //name// APPROVED REPORT Study performed: 11/27/2017 14:18:12 EXAM: Comprehensive 2D, Doppler, and color-flow Echocardiogram Patient Location: In-Patient Room #: [facility] Status: routine BSA: 1.63 HR: 58 bpm BP: 144/41 mmHg Rhythm: NSR Other Information Study Quality: Good Indications Hypertension/HDD 2D Dimensions LVEF(%): 86.23 (>50%) IVSd: 9.97 (7-11mm) LVOT Diam: 18.01 (18-24mm) LVDd: 44.59 mm PWd: 7.70 (7-11mm) Ascending Ao: 33.39 (22-36mm) LVDs: 19.83 (25-40mm) Aortic Root: 30.65 mm Harris's LVEF: 86.23 % Volumes Left Atrial Volume (Systole) LA ESV Index: 43.90 mL/m2 Aortic Valve AoV Peak Kamari.: 1.51 m/s AO Peak Gr.: 9.11 mmHg LVOT Max P.66 mmHg AO Mean Gr.: 5.13 mmHg LVOT Mean P.97 mmHg LVOT Max V: 1.38 m/s AO V2 VTI: 36.82 cm LVOT Mean V: 0.92 m/s YESSENIA (VTI): 2.56 cm2 LVOT V1 VTI: 37.02 cm Mitral Valve E/A Ratio: 1.15 [place] [address] 2 D/M-MODE ECHOCARDIOGRAM Name: ANGI PALMER Room: [address] IN [facility]#: [id number] Admission: 11/27/17 Attend Phys: Dale Godinez, Discharge: Date of : [birth year] Date of Service: 11/27/17 1459 Report #: [id number] MV Decel. Time: 267.28 ms MV E Max Kamari.: 1.19 m/s MV PHT: 77.51 ms MVA (PHT): 2.84 cm2 TDI E/Lateral E': 9.92 E/Medial E': 10.82 Medial E' Kamari.: 0.11 m/s Lateral E' Kamari.: 0.12 m/s Pulmonary Valve PV Peak Kamari.: 1.06 m/s PV Peak Gr.: 4.49 mmHg Tricuspid Valve RAP Estimate: 5.00 mmHg TR Peak Gr.: 23.35 mmHg RVSP: 28.35 mmHg PA Pressure: 28.35 mmHg Left Ventricle The left ventricle is normal size. There is normal LV segmental wall motion. Borderline concentric left ventricular hypertrophy. Left ventricular systolic function is normal. The left ventricular ejection fraction is within the normal range. LVEF is 60-65%. The left ventricular diastolic function is normal. Right Ventricle The right ventricle is normal size. The right ventricular systolic function is normal. Atria Left atrium is borderline dilated. The right atrium size is normal. Aortic Valve Mild aortic valve sclerosis. Trace aortic regurgitation. There is no aortic valvular stenosis. Mitral Valve Mild mitral annular calcification. Trace mitral regurgitation. No evidence of mitral valve stenosis. Tricuspid Valve The tricuspid valve is normal in structure. Mild tricuspid regurgitation. No pulmonary hypertension. [place] [address] 2 D/M-MODE ECHOCARDIOGRAM Name: ANGI PALMER Room: [address]#: [id number] Admission: 11/27/17 Attend Phys: Dale Godinez, Discharge: Date of : [birth year] Date of Service: 11/27/17 1459 Report #: [id number] The pulmonary valve is normal in structure. Trace pulmonic regurgitation. Great Vessels The aortic root is normal in size. IVC is normal in size and collapses with >50% inspiration Pericardium There is no pericardial effusion. <Conclusion> The left ventricle is normal size. Borderline concentric left ventricular hypertrophy. Left ventricular systolic function is normal. The left ventricular ejection fraction is within the normal range. LVEF is 60-65%. The left ventricular diastolic function is normal. The right ventricle is normal size. Left atrium is borderline dilated. Mild aortic valve sclerosis. Trace aortic regurgitation. There is no aortic valvular stenosis. Mild mitral annular calcification. Trace mitral regurgitation. The tricuspid valve is normal in structure. IVC is normal in size and collapses with >50% inspiration There is no pericardial effusion. There is normal LV segmental wall motion. <ELECTRONICALLY SIGNED> By: Wilmer Cabrera MD, FACC 11/27/17 [phone] Wilmer Cabrera MD, FACC /INF
--- NOTE | 2017-11-27 15:10 | EKG ---
[place] [address] ELECTROCARDIOGRAM REPORT Name: ANGI PALMER Room: [address] ADM IN ..#: [id number] Admission: 11/27/17 Attend Phys: Dale Godinez MD Discharge: Date of : [birth year] Report #: [id number] THIS REPORT FOR: //name// [facility] ED Test Date: 2017-11-27 Test Time: 09:43:37 Pat Name: ANGI PALMER Department: Room: [facility] Gender: F Building Code Inspector: : 1930 Requested By: Macario Gallo Order Number: [id number] MD: Wilmer Cabrera Measurements Intervals [place] Rate: 45 P: 63 DE: 201 QRS: 4 QRSD: 108 T: 108 QT: 432 QTc: 374 Interpretive Statements Sinus bradycardia Anterior infarct, old Nonspecific repol abnormality, lateral leads Baseline wander in lead(s) I,III,aVL Compared to ECG 06/03/2017 21:55:49 ST (T wave) changes have occurred Sinus rate has slowed Myocardial infarct finding still present Electronically Signed On 11-27-2017 15:10:30 CDT by Wilmer Cabrera [email or web address] <ELECTRONICALLY SIGNED> By: Wilmer Cabrera MD, [facility] 11/27/17 1510 0943 0943 Wilmer Cabrera MD, [facility] /EPI
[2017-11-27 16:21] VITALS: BP 121/37
[2017-11-27 19:35] VITALS: BP 146/47
[2017-11-28] VITALS (10 sets, daily range): BP systolic 118–206; BP diastolic 44–76
[2017-11-29 04:20] VITALS: BP 190/76
[2017-11-29 04:34] LABS: HEMATOCRIT 22.6 % (37.0-47.0); HEMOGLOBIN 7.6 gm/dL (12.0-15.0); MCH 31.6 pg (26.0-34.0); MCHC 33.8 g/dL (28.0-37.0); MCV 93.6 fL (80.0-100.0); MPV 7.3 fl. (7.2-11.1); RBC 2.41 mil/uL (4.20-5.00); RDW-CV 14.3 % (10.5-14.5); WBC 6.4 thou/uL (4.0-11.0)
[2017-11-29 04:39] LABS: CALCIUM 8.4 mg/dL (8.5-10.1); CREATININE 1.1 mg/dL (0.6-1.3); MAGNESIUM 1.5 mg/dL (1.8-2.4); POTASSIUM 3.9 mmol/L (3.5-5.1)
[2017-11-29 05:43] VITALS: BP 172/53
[2017-11-29 07:50] VITALS: BP 188/74
[2017-11-29] MEDS ORDERED: COLESTID1 GM PO (09:04)
[2017-11-29] MEDS ORDERED: BUDESONIDE EC3 MG PO (09:09)
[2017-11-29] MEDS ORDERED: PRILOSEC10 MG PO (11:36)
[2017-11-29 12:11] VITALS: BP 188/74
[2017-11-29 12:23] VITALS: BP 188/74
[2017-11-29 12:26] VITALS: BP 155/44
--- NOTE | 2017-12-28 13:22 | CON ---
[address] [address] CONSULTATION Name: ANGI PALMER Room: [address] IN .R.#: [id number] Admission: 11/27/17 Attend Phys: Dale Godinez MD Discharge: 11/29/17 Date of : [birth year] Report #: [id number] THIS REPORT FOR: //name// CC: Zach Harris DO Dale Beyer DATE OF SERVICE: 11/27/[address] Godinez. REASON FOR CONSULTATION: Chronic diarrhea. HISTORY OF PRESENT ILLNESS: This is a very pleasant 87-year-old female who is known to our service during her last when she presented during her last admission for evaluation of chronic diarrhea. The patient now presented to the hospital with loss of consciousness. The patient continues to report diarrhea for 4 weeks now. She reports her stools remain loose and watery in spite of the fact that she has been taking Imodium 8 tablets per day. The patient underwent EGD and flexible sigmoidoscopy during her last admission and biopsies were obtained from the small bowel and colon. Small bowel biopsies were unremarkable, but colon biopsies show evidence of collagenous colitis. The patient continues to deny significant abdominal pain, hematochezia, nausea, vomiting or weight loss. PAST MEDICAL HISTORY: The patient has prior history of CKD, syncope, urinary tract infection. PAST SURGICAL HISTORY: The patient has a prior surgical history of appendectomy, tonsillectomy, hysterectomy and tubal ligation. SOCIAL HISTORY: The patient never smoked, drinks alcohol or recreational drugs. She lives with her family. FAMILY HISTORY: There is no pertinent family history. REVIEW OF SYSTEMS: A comprehensive 10-point review of systems is negative except for what was mentioned in the HPI. PHYSICAL EXAMINATION: VITAL SIGNS: Blood pressure 144/41, respirations 15, pulse rate 66, temperature is 36.5, pulse ox 100% on room air. GENERAL: The patient is alert, awake, oriented x 3. HEENT: Mucous membranes are moist. NECK: [place] [address] CONSULTATION Name: ANGI PALMER Room: [address]#: [id number] Admission: 11/27/17 Attend Phys: Dale Godinez MD Discharge: 11/29/17 Date of : [birth year] Report #: [id number] PULMONARY: Lungs are clear to auscultation. CARDIOVASCULAR: Rate and rhythm regular, S1, S2. ABDOMEN: Soft, nontender, nondistended and there is no organomegaly. EXTREMITIES: Warm and well perfused. There is no edema. SKIN: Dry and intact. LABORATORY DATA: Hemoglobin 7.9, hematocrit 23.7, platelet count 282. Sodium 136, potassium 3.5, chloride 105, bicarbonate 23, BUN 28, creatinine 1.6, AST 14, ALT 12, alkaline phosphatase 36, total bilirubin 0.3. ASSESSMENT AND PLAN: This is a pleasant 87-year-old female with chronic diarrhea who presented with 1 episode of loss of consciousness. The patient was diagnosed with microscopic colitis recently. Therefore, we will start her on 9 mg of budesonide per day along with Imodium 2 tablets 4 times a day. The patient will continue to take this dose for at least 4 weeks following which the dose can be tapered depending on the patient's symptoms. ADDENDUM I have seen and examined the patient and agreed with plan that has been outlined by our new associate, Dr. Eckert. The patient underwent upper endoscopy and flexible sigmoidoscopy last week, which were unremarkable. Biopsies came back today positive for collagenous colitis. Agree with placing the patient on Entocort and we will continue her on this for a good 4-8 weeks and then taper as tolerated. We discussed the plans with the patient as well and she is agreeable to the same. <ELECTRONICALLY SIGNED> By: Mark Eckert MD 12/28/17 1322 1342 1927Mark Eckert MD /nt
== END 2017-11-29 13:05 | disposition home or self-care (01) | DRG 308 ==
LOC: M.ERS 09:37 → M.2W 10:58 → M.TBA-ER 10:58 → M.2W 12:34
PROVIDERS: Emergency Medicine; ADMIT Internal Medicine
DX: R00.1 Bradycardia, unspecified (principal); N17.0 Acute kidney failure with tubular necrosis; E44.0 Moderate protein-calorie malnutrition; I95.2 Hypotension due to drugs; I12.9 Hypertensive chronic kidney disease with stage 1 through stage 4 chronic kidney disease, or unspecified chronic kidney disease; N18.3 Chronic kidney disease, stage 3 (moderate); I42.9 Cardiomyopathy, unspecified; I77.1 Stricture of artery; K52.831 Collagenous colitis; K21.9 Gastro-esophageal reflux disease without esophagitis; K52.9 Noninfective gastroenteritis and colitis, unspecified; I44.0 Atrioventricular block, first degree; Z90.710 Acquired absence of both cervix and uterus; Z98.42 Cataract extraction status, left eye; Z90.49 Acquired absence of other specified parts of digestive tract; Z98.41 Cataract extraction status, right eye; Z79.899 Other long term (current) drug therapy; Z88.8 Allergy status to other drugs, medicaments and biological substances; Z91.048 Other nonmedicinal substance allergy status

== ENCOUNTER 2018-02-05 14:18 | Inpatient (IN) | payer MEDICARE, OTHER ==
[~2018-02-05] VITALS: Ht 167.6 cm; Wt 58.1 kg
[~2018-02-05 14:18] MED LIST changes: +BUDESONIDE EC3 MG PO; +CELEBREX50 MG PO; +COLESTID1 GM PO; +OXYBUTYNIN 5 MG5 M2 PO; +PRILOSEC10 MG PO; +TUMS PO
[2018-02-05 14:26] VITALS: BP 244/101
[2018-02-05] MEDS ORDERED: LASIX 20 MG TAB20 MG PO (14:38)
[2018-02-05 15:10] LABS: ABSOLUTE BASOPHILS 0.1 thou/uL (0.0-0.2); ABSOLUTE EOSINOPHILS 0.1 thou/uL (0.0-0.7); ABSOLUTE LYMPHOCYTES 1.1 thou/uL (0.8-5.3); ABSOLUTE MONOCYTES 0.5 thou/uL (0.0-1.2); ABSOLUTE NEUTROPHILS 4.2 thou/uL (1.6-8.1); BASOPHILS 1.1 %; EOSINOPHILS 0.9 %; HEMATOCRIT 32.9 % (37.0-47.0); LYMPHOCYTES 18.4 %; MCH 32.3 pg (26.0-34.0); MCHC 33.4 g/dL (28.0-37.0); MCV 96.7 fL (80.0-100.0); MONOCYTES 8.7 %; MPV 7.6 fl. (7.2-11.1); NUCLEATED RBCS 0 /100WBC; PLATELET COUNT* 215 thou/uL (150-400); POLYS 70.9 %; RDW-CV 14.1 % (10.5-14.5); WBC 5.9 thou/uL (4.0-11.0)
[2018-02-05 15:23] LABS: ANION GAP 8 mmol/L (7-16); BUN 27 mg/dL (7-18); CHLORIDE 103 mmol/L (98-107); CO2 25 mmol/L (21-32); GLUCOSE 88 mg/dL (70-99); POTASSIUM 4.1 mmol/L (3.5-5.1); SODIUM 136 mmol/L (136-145)
[2018-02-05 15:30] LABS: ALBUMIN 3.3 g/dL (3.4-5.0); ALKALINE PHOSPHATASE 31 U/L (46-116); LIPASE 131 U/L (73-393); SGOT 19 U/L (15-37); SGPT 20 U/L (30-65); TOTAL BILIRUBIN 0.3 mg/dL (<0.1-1.0); TOTAL PROTEIN 6.4 g/dL (6.4-8.2); TROPONIN-I LEVEL <0.06 ng/mL (<0.06)
[2018-02-05 16:05] LABS: URINE BILIRUBIN NEGATIVE (Negative); URINE BLOOD NEGATIVE (Negative); URINE CLARITY CLEAR; URINE COLOR YELLOW; URINE GLUCOSE-RANDOM NEGATIVE (Negative); URINE KETONES TRACE (Negative); URINE LEUKOCYTES-REFLEX NEGATIVE (Negative); URINE PROTEIN 2+ (Negative); URINE SPECIFIC GRAVITY >= 1.030 (1.005-1.030); URINE UROBILINOGEN 0.2 E.U./dl (0.2-1.0)
[2018-02-05 16:06] LABS: URINE NITRITE-REFLEX POSITIVE (Negative)
[2018-02-05 16:29] LABS: BACTERIA-REFLEX >30 Many /HPF (None Seen); SQUAMOUS 4-10 Moderate /LPF (0-3)
[2018-02-05 16:30] LABS: HYALINE CASTS 0-3 Few /LPF (None Seen); URINE WBC-REFLEX 6-15 Few /HPF (0-5)
[2018-02-05 16:31] LABS: CRYSTALS None Seen /LPF (None Seen); MUCUS None Seen strn/LPF (None Seen); URINE RBC None Seen /HPF (0-2)
[2018-02-05 19:33] VITALS: BP 178/84
[2018-02-05 20:00] VITALS: BP 173/63
[2018-02-06] VITALS: BP 169/65
[2018-02-06 04:00] VITALS: BP 168/64
[2018-02-06 05:30] LABS: ABSOLUTE BASOPHILS 0.1 thou/uL (0.0-0.2); ABSOLUTE EOSINOPHILS 0.1 thou/uL (0.0-0.7); ABSOLUTE LYMPHOCYTES 1.3 thou/uL (0.8-5.3); ABSOLUTE MONOCYTES 0.8 thou/uL (0.0-1.2); ABSOLUTE NEUTROPHILS 4.1 thou/uL (1.6-8.1); BASOPHILS 1.4 %; EOSINOPHILS 1.3 %; HEMATOCRIT 30.8 % (37.0-47.0); HEMOGLOBIN 10.3 gm/dL (12.0-15.0); LYMPHOCYTES 20.3 %; MCH 32.4 pg (26.0-34.0); MCHC 33.3 g/dL (28.0-37.0); MCV 97.3 fL (80.0-100.0); MONOCYTES 12.2 %; MPV 7.8 fl. (7.2-11.1); NUCLEATED RBCS 0 /100WBC; PLATELET COUNT* 195 thou/uL (150-400); POLYS 64.8 %; RBC 3.17 mil/uL (4.20-5.00); RDW-CV 14.1 % (10.5-14.5); WBC 6.3 thou/uL (4.0-11.0)
[2018-02-06 05:42] LABS: CALCIUM 8.5 mg/dL (8.5-10.1); CREATININE 0.9 mg/dL (0.6-1.3)
[2018-02-06 08:00] VITALS: BP 190/87
[2018-02-06 11:40] VITALS: BP 192/69
--- NOTE | 2018-02-06 14:30 | EKG ---
[place] [address] ELECTROCARDIOGRAM REPORT Name: ANGI PALMER Room: [address] ADM IN .R.#: [id number] Admission: 02/05/18 Attend Phys: Max Hernandez MD Discharge: Date of : [birth year] Report #: [id number] THIS REPORT FOR: //name// [facility] ED Test Date: 2018-02-05 Test Time: 15:03:45 Pat Name: ANGI PALMER Department: Room: [facility] Gender: F Rivet Sticker: Ronnie BARRY : 1930 Requested By: Petra Walton Order Number: [id number] MD: Andrew Sandy Measurements Intervals Robertson Rate: 71 P: 58 LA: 198 QRS: 6 QRSD: 108 T: 55 QT: 393 QTc: 428 Interpretive Statements Sinus rhythm Probable left atrial enlargement Anterior infarct age indeterminate Baseline wander in lead(s) III Compared to ECG 11/27/2017 09:43:37 Sinus bradycardia no longer present Electronically Signed On 02-06-2018 14:30:44 HUMAN SERVICES MANAGER by Andrew Sandy [email or web address] <ELECTRONICALLY SIGNED> By: Andrew Sandy MD, FACC 02/06/18 1430 1503 1503 Andrew Sandy MD, [facility] /EPI
[2018-02-06 15:48] VITALS: BP 187/65
[2018-02-06 20:00] VITALS: BP 135/60
[2018-02-07] VITALS (7 sets, daily range): BP systolic 151–207; BP diastolic 50–88
[2018-02-07 06:09] LABS: POTASSIUM 3.7 mmol/L (3.5-5.1)
[2018-02-08] VITALS: BP 147/61
[2018-02-08 04:00] VITALS: BP 150/71
[2018-02-08 05:05] LABS: CALCIUM 9.2 mg/dL (8.5-10.1); CREATININE 1.1 mg/dL (0.6-1.3); POTASSIUM 3.8 mmol/L (3.5-5.1)
[2018-02-08 07:38] VITALS: BP 165/60
[2018-02-08 11:31] VITALS: BP 146/56
[2018-02-08] MEDS ORDERED: COZAAR 50 MG TA50 M1 PO (12:43)
[2018-02-08] MEDS ORDERED: NORVASC10 MG PO (12:44)
[2018-02-08] MEDS ORDERED: SPIRONOLACTONE25 MG PO (12:44)
[2018-02-08] MEDS ORDERED: TYLENOL EXTRA500 MG PO (12:44)
[2018-02-08] MEDS ORDERED: CENTRUM SILVER1 EAC4 PO (12:46)
[2018-02-08] MEDS ORDERED: CHLORTHALIDONE25 MG PO (12:46)
[2018-02-14 06:06] LABS: METANEPHRINE-PL 13 pg/mL (0-62); NORMETANEPHRINE - PL 82 pg/mL (0-145)
== END 2018-02-08 15:06 | disposition home or self-care (01) | DRG 690 ==
LOC: M.ERS 14:18 → M.TBA-ER 17:34 → M.2W 17:34
PROVIDERS: Nurse Practitioner Family; ADMIT Family Medicine
DX: N39.0 Urinary tract infection, site not specified (principal); I50.32 Chronic diastolic (congestive) heart failure; I13.0 Hypertensive heart and chronic kidney disease with heart failure and stage 1 through stage 4 chronic kidney disease, or unspecified chronic kidney disease; I16.0 Hypertensive urgency; K21.9 Gastro-esophageal reflux disease without esophagitis; B96.20 Unspecified Escherichia coli [E. coli] as the cause of diseases classified elsewhere; M16.11 Unilateral primary osteoarthritis, right hip; N18.3 Chronic kidney disease, stage 3 (moderate); Z90.710 Acquired absence of both cervix and uterus; Z98.49 Cataract extraction status, unspecified eye; Z88.6 Allergy status to analgesic agent; Z88.8 Allergy status to other drugs, medicaments and biological substances; Z82.49 Family history of ischemic heart disease and other diseases of the circulatory system

== ENCOUNTER → 2019-04-10 | Outpatient (CLI) | payer OTHER ==
[~2019-04-10] MED LIST changes: +CENTRUM SILVER1 EAC4 PO; +CHLORTHALIDONE25 MG PO; +LASIX 20 MG TAB20 MG PO; +NORVASC10 MG PO; +SPIRONOLACTONE25 MG PO; +TYLENOL EXTRA500 MG PO
== END ==
LOC: M.LAB 04:55
DX: E87.6 Hypokalemia (principal)